=== PATIENT | female | born 1955 | race Caucasian/White ===

== ENCOUNTER 2018-02-07 22:38 | Emergency (ER) | payer OTHER | END 2018-02-08 01:37 | disposition home or self-care (01) | LOC: FTE 22:38 | DX: R21 Rash and other nonspecific skin eruption (principal); Z87.891 Personal history of nicotine dependence | CPT/HCPCS: 99283; Z7502 ==

== ENCOUNTER 2018-02-10 20:54 | Emergency (ER) | payer OTHER | END 2018-02-10 22:58 | disposition home or self-care (01) | LOC: FTE 20:54 | DX: F41.9 Anxiety disorder, unspecified (principal) | CPT/HCPCS: 99282; Z7502 ==

== ENCOUNTER 2018-04-25 14:58 | Emergency (ER) | payer OTHER | END 2018-04-25 15:59 | disposition home or self-care (01) | LOC: FTE 14:58 | DX: G47.00 Insomnia, unspecified (principal); H57.8 Other specified disorders of eye and adnexa | CPT/HCPCS: 99283; Z7502 ==

== ENCOUNTER 2018-05-03 12:08 | Emergency (ER) | payer OTHER | END 2018-05-03 14:37 | disposition home or self-care (01) | LOC: FTE 12:08 | DX: S90.862A Insect bite (nonvenomous), left foot, initial encounter (principal); S90.861A Insect bite (nonvenomous), right foot, initial encounter; W57.XXXA Bitten or stung by nonvenomous insect and other nonvenomous arthropods, initial encounter; Y92.9 Unspecified place or not applicable | CPT/HCPCS: 99283; Z7502 ==